=== PATIENT | female | born 1950 | race Caucasian/White ===

== ENCOUNTER 2018-03-18 08:34 | Emergency (ER) | payer OTHER ==
--- NOTE | 2018-03-18 08:36 | PDOC ---
History of Present Illness - General Chief Complaint: Shortness of Breath Stated Complaint: URINARY PROBLEM, SOB Time Seen by Provider: 03/18/18 08:35 Past History - Past Medical History Allergies/Adverse Reactions: Allergies Allergy/AdvReac Type Severity Reaction Status Date / Time No Known Allergies Allergy Verified 03/18/18 08:35 Home Medications: Ambulatory Orders Acetaminophen [Tylenol .Regular Strength -] 650 mg PO Q4H 07/19/12 Glucosa Law 2Kcl/Chondroitin Law [Glucosamine & Chondroitin Cap] 1 each PO DAILY 07/19/12 LORazepam [Ativan] 1.5 mg PO HS 07/19/12 Multivitamin [Multivitamins] 1 each PO DAILY 07/19/12 Propafenone HCl [Rythmol] 225 mg PO DAILY 07/19/12 Sertraline HCl [Zoloft -] 200 mg PO DAILY 07/19/12 Metoprolol Succinate [Toprol XL -] 25 mg PO DAILY #30 tab.sr.24h 07/20/12 Anemia: No Asthma: No Cancer: No Cardiac Disorders: Yes CVA: No COPD: No CHF: No Dementia: No Diabetes: No GI Disorders: No Disorders: No HTN: No Hypercholesterolemia: No Liver Disease: No Seizures: No Thyroid Disease: No - Surgical History Abdominal Surgery: No Appendectomy: No Cardiac Surgery: No Cholecystectomy: No Lung Surgery: No Neurologic Surgery: No Orthopedic Surgery: No - Suicide/Smoking/Psychosocial Hx Smoking Status: No Smoking History: Never smoked Have you smoked in the past 12 months: No Number of Cigarettes Smoked Daily: 0 Drug/Substance Use Hx: No Substance Use Type: None Hx Substance Use Treatment: No
--- NOTE | 2018-03-18 09:05 | PDOC ---
Attending Attestation - Resident Resident Name: ZaneOmari denny - ED Attending Attestation I have performed the following: I have examined & evaluated the patient, The case was reviewed & discussed with the resident, I agree w/resident's findings & plan, Exceptions are as noted - HPI HPI: 68 yo F history CAD currently 10 days post-op from 4V CABG presents with urinary frequency and urgency for the past few days. She has been having cp and SOB since her surgery that is unchanged, mainly associated with deep breath and movement of her chest. She has history of swelling in her legs that has been improving with time. - Physicial Exam PE: GENERAL: Awake, alert, and fully oriented, in no acute distress HEAD: No signs of trauma EYES: PERRLA, EOMI, sclera anicteric, conjunctiva clear ENT: Auricles normal inspection, hearing grossly normal, nares patent, oropharynx clear without exudates. Moist mucosa NECK: Normal ROM, supple, no lymphadenopathy, JVD, or masses LUNGS: Breath sounds equal, clear to auscultation bilaterally. No wheezes, and no crackles HEART: Regular rate and rhythm, normal S1 and S2, no murmurs, rubs or gallops ABDOMEN: Soft, nontender, normoactive bowel sounds. No guarding, no rebound. No masses EXTREMITIES: Normal range of motion, no edema. No clubbing or cyanosis. No cords, erythema, or tenderness NEUROLOGICAL: Cranial nerves II through XII grossly intact. Normal speech, normal gait SKIN: Warm, Dry, normal turgor, no rashes noted. +Midline sternotomy incision, no overlying skin changes. - Medical Decision Making Pt with elevated troponin, however, also s/p recent cardiac surgery. Contacted Dr. Higgins, covering for Dr. Cruz, patient's surgeon. He stated that this is expected after surgery and should not be alarming as long as EKG is unchanged ( which it is the same as prior EKG from 2013).
--- NOTE | 2018-03-18 09:14 | PDOC ---
History of Present Illness - General Chief Complaint: Shortness of Breath Stated Complaint: URINARY PROBLEM, SOB Time Seen by Provider: 03/18/18 08:35 - History of Present Illness Initial Comments: The patient is a 68F with a history of CAD, CHF, and BLE swelling who presents with 3 days of urinary frequency s/p recent discharge for CABG x4 and MVR 3d ago. She denies dysuria, hematuria, fevers, chills, or any new abdominal pain. The patient reports continued chest soreness and mild SOB that have been present since just after surgery. The patient was also told that she would be having lab work done by her CT Surgeon (Dr. Dariusz Cruz @ [facility]) and is highly concerned that that be evaluated. SxH: Facelift, tonsillectomy SH: +social EtOH; denies tobacco for 20+ yrs or illicit drug use 03/18/18 09:05 Past History - Past Medical History Allergies/Adverse Reactions: Allergies Allergy/AdvReac Type Severity Reaction Status Date / Time No Known Allergies Allergy Verified 03/18/18 08:35 Home Medications: Ambulatory Orders Acetaminophen [Tylenol .Regular Strength -] 650 mg PO Q4H 07/19/12 LORazepam [Ativan] 1.5 mg PO HS 07/19/12 Sertraline HCl [Zoloft -] 200 mg PO DAILY 07/19/12 Metoprolol Succinate [Toprol XL -] 25 mg PO DAILY #30 tab.sr.24h 07/20/12 Aspirin [ASA -] 81 mg PO DAILY 03/18/18 Docusate Sodium [Colace] 3,000 mg PO TID 03/18/18 LORazepam [Ativan] 1.5 mg PO HS 03/18/18 Melatonin 1 tab PO HS 03/18/18 Oxycodone HCl [Oxycodone HCl ER] 10 mg PO BID 03/18/18 Anemia: No Asthma: No Cancer: No Cardiac Disorders: Yes CVA: No COPD: No CHF: No Dementia: No Diabetes: No GI Disorders: No Disorders: No HTN: No Hypercholesterolemia: No Liver Disease: No Seizures: No Thyroid Disease: No - Surgical History Abdominal Surgery: No Appendectomy: No Cardiac Surgery: No Cholecystectomy: No Lung Surgery: No Neurologic Surgery: No Orthopedic Surgery: No - Suicide/Smoking/Psychosocial Hx Smoking Status: No Smoking History: Never smoked Have you smoked in the past 12 months: No Number of Cigarettes Smoked Daily: 0 Drug/Substance Use Hx: No Substance Use Type: None Hx Substance Use Treatment: No Review of Systems - Review of Systems Able to Perform ROS?: Yes Comments:: GENERAL/CONSTITUTIONAL: No fever or chills. No weakness HEAD, EYES, EARS, NOSE AND THROAT: No change in vision. No ear pain or discharge. No sore throat CARDIOVASCULAR: +MSK chest pain and mild SOB post-operatively RESPIRATORY: No cough, wheezing, or hemoptysis GASTROINTESTINAL: No nausea, vomiting, diarrhea or constipation GENITOURINARY: per HPI MUSCULOSKELETAL: No joint or muscle swelling or pain. SKIN: No rash NEUROLOGIC: No headache, vertigo, loss of consciousness, or change in strength/ sensation ENDOCRINE: No increased thirst. No abnormal weight change HEMATOLOGIC/LYMPHATIC: No anemia, easy bleeding, or history of blood clots ALLERGIC/IMMUNOLOGIC: No hives or skin allergy 03/18/18 09:23 Is the patient limited Faroese proficient: No *Physical Exam - Physical Exam Comments: GENERAL: Awake, alert, and fully oriented, in no acute distress HEAD: No signs of trauma, normocephalic, atraumatic EYES: PERRL, EOMI, sclera anicteric, conjunctiva clear ENT: Hearing grossly normal, nares patent, oropharynx clear without exudates. Moist mucosa NECK: Normal ROM, supple, no lymphadenopathy CHEST: Midline incision C/D/I LUNGS: No distress, speaks full sentences, clear to auscultation bilaterally HEART:Regular rate and rhythm, normal S1 and S2, II/ systolic murmur ppreciated, peripheral pulses normal and equal bilaterally ABDOMEN: Soft, nontender, eccymosis from Lvx injections while inpt; normoactive bowel sounds. No guarding, no rebound. No masses EXTREMITIES : BLE edema, L>R (however improved since surgery); LLE vein harvest site incisions well healing and C/D/I; normal range of motion. No cyanosis. NEUROLOGICAL: Cranial nerves II through XII grossly intact. Normal speech, no focal sensorimotor deficits 03/18/18 09:25 ED Treatment Course - LABORATORY CBC & Chemistry Diagram: 03/18/18 09:44 03/18/18 09:44 Medical Decision Making - Medical Decision Making The patient is a 68F POD 10 from CABG x4 and MVR who presents with 3d of urinary frequency Ddx: UTI v overflow incontinence v neurogenic bladder ED Course CMP, CBC, BNP, Cardiac Profile, UA ECG 03/18/18 09:28 Lytes wnl UA w/o evidence of UTI Troponin I 0.[address] Higgins (covering for her CT Surgeon Dr. Dariusz Cruz) concerning the elevation in Troponin. He stated that the elevation is likely related to her recent surgery. He also states that he has been in contact with the patient over the last night concerning her symptoms and did not express concern that she would be having a new cardiac event especially since there is no significant change in her ECG today compared to one taken 5 years ago. He does recommend that she undergo a TTE in the near future though. Counseled the patient about the discussion had w/ the Surgeon. Also instructed that patient that if she has any change in her chest discomfort for SOB (e.g. it gets worse or changes quality) that she should go to the Emergency Room and should contact her Appeals Specialist and CT Surgeon Plan for D/C & f/u with her CT Surgeon, Appeals Specialist, and PCP 03/18/18 10:38 *DC/Admit/Observation/Transfer Diagnosis at time of Disposition: Urinary frequency - Discharge Dispostion Disposition: HOME Condition at time of disposition: Stable Decision to Admit order: No - Referrals Referrals: Dariusz Cruz [Other] - Patient Instructions Printed Discharge Instructions: DI for Urinary Incontinence, DI for Chest Pain - Post Discharge Activity
[2018-03-18 09:18] VITALS: BMI 26.0
[2018-03-18 09:30] LABS: URINE APPEARANCE Clear; URINE BILIRUBIN Negative (NEGATIVE); URINE COLOR Amber; URINE GLUCOSE (UA) Negative (NEGATIVE); URINE KETONE Negative (NEGATIVE); URINE LEUK ESTERASE Negative (NEGATIVE); URINE NITRITE Negative (NEGATIVE); URINE PROTEIN Negative (NEGATIVE)
[2018-03-18 09:55] LABS: BASO % 0.2 % (0-2.0); EOS % 1.8 % (0-4.5); HEMATOCRIT 30.7 % (32.4-45.2); HEMOGLOBIN 10.1 GM/dl (10.7-15.3); LYMPH % 12.6 % (8-40); MCH 30.6 pg (25.7-33.7); MCHC 32.7 g/dl (32.0-36.0); MEAN CELL VOLUME 93.7 fl (80-96); MEAN PLT VOLUME 7.7 fl (7.5-11.1); MONO % 4.3 % (3.8-10.2); NEUT % 81.1 % (42.8-82.8); PLATELET COUNT 328 K/MM3 (134-434); RBC 3.28 M/mm3 (3.60-5.2); RDW 15.3 % (11.6-15.6)
[2018-03-18 10:02] LABS: ALBUMIN 3.1 g/dl (3.5-5.0); ALK PHOS 68 U/L (32-92); ANION GAP 10 MMOL/L (8-16); BILIRUBIN,TOTAL 1.4 mg/dl (0.2-1.0); BLOOD UREA NITROGEN 9 mg/dl (7-18); CALCIUM 8.4 mg/dl (8.4-10.2); CHLORIDE 98 mmol/L (98-107); CO2 27 mmol/L (22-28); CREATININE 0.6 mg/dl (0.6-1.3); GLUCOSE,RANDOM 103 mg/dl (74-106); POTASSIUM 3.6 mmol/L (3.5-5.1); SGOT/AST 60 U/L (10-42); SGPT/ALT 52 U/L (10-40); SODIUM 135 mmol/L (136-145); TOT PROT 5.9 g/dl (6.4-8.3)
[2018-03-18 11:16] LABS: N-TERMINAL BNP 3769.12 pg/ml (5-125)
[2018-03-18 11:51] VITALS: BP 119/68; PULSE 83; TEMP 98.4
--- NOTE | 2018-03-19 22:24 | EKG ---
Test Reason : Blood Pressure : / mmHG Vent. Rate : 082 BPM Atrial Rate : 082 BPM P-R Int : 160 ms QRS Dur : 092 ms QT Int : 384 ms P-R-T Axes : 064 039 062 degrees QTc Int : 448 ms NORMAL SINUS RHYTHM POSSIBLE LEFT ATRIAL ENLARGEMENT RSR' OR QR PATTERN IN V1 SUGGESTS RIGHT VENTRICULAR CONDUCTION DELAY NONSPECIFIC T WAVE ABNORMALITY ABNORMAL ECG NO PREVIOUS ECGS AVAILABLE Confirmed by PATY TERRELL MD ([id number]) on 03/19/2018 10:24:02 PM Referred By: DR GARCIA Confirmed By:PATY TERRELL MD
== END 2018-03-18 12:24 | disposition home or self-care (01) ==
LOC: FER 08:34
DX: R35.0 Frequency of micturition (principal); I25.10 Atherosclerotic heart disease of native coronary artery without angina pectoris; I50.9 Heart failure, unspecified; M79.89 Other specified soft tissue disorders
CPT/HCPCS: 36415; 80053; 81003; 82550; 83880; 84484; 85025; 93005; 99284-25